=== PATIENT | male | born 1990 | race Caucasian/White ===

== ENCOUNTER 2019-02-09 04:50 | Emergency (ER) | payer BC ==
[~2019-02-09] VITALS: Ht 185.4 cm; Wt 95.8 kg
[2019-02-09] MEDS ORDERED: OMEP-110 PO (05:12)
--- NOTE | 2019-02-09 05:13 | NUR ---
FIRST CONTACT WITH PT. HEMORRHOID, PT C/O SIGNIFICANT PAIN, DENIES ANY BLEEDING. REPORTING PAIN THAT INTERFERES WITH SLEEP. PT DENIES N/V/D WELL. PT'S AOX4. RESPS EVEN AND UNLABORED.
[2019-02-09 05:57] LABS: BASOPHILS # (AUTO) 0.04 x10^3/uL (0-0.1); BASOPHILS % (AUTO) 1 % (0-1); EOSINOPHILS # (AUTO) 0.17 x10^3/uL (0-0.4); EOSINOPHILS % (AUTO) 2 % (1-7); LYMPHOCYTES % (AUTO) 22 % (22-44); MD NO; MEAN CORPUSCULAR HEMOGLOBIN 31.1 pg (27.5-34.5); MEAN CORPUSCULAR HGB CONC 34.1 g/dL (33.2-36.2); MEAN CORPUSCULAR VOLUME 91.2 fL (81-97); MEAN PLATELET VOLUME 8.8 fL (7.4-10.4); MONOCYTES # (AUTO) 0.69 x10^3/uL (0.2-0.8); MONOCYTES % (AUTO) 8 % (2-9); NEUTROPHILS # (AUTO) 5.52 x10^3/uL (1.8-6.8); NEUTROPHILS % (AUTO) 67 % (42-75); PLATELET COUNT 263 x10^3/uL (130-400); RED BLOOD COUNT 5.27 x10^6/uL (4.38-5.82); RED CELL DISTRIBUTION WIDTH 13.7 % (9.4-14.8)
[2019-02-09 06:13] LABS: ANION GAP 8 mmol/L (5-15); CALCIUM 9.6 mg/dL (8.5-10.1); CHLORIDE 108 mmol/L (98-107); CREATININE 1.04 mg/dL (0.7-1.3)
--- NOTE | 2019-02-09 06:21 | NUR ---
PT TO CT NOW.
[2019-02-09] MEDS ORDERED: OMNIPAQUE 350 MG/ML, 100ML BOTTLE ONE (06:32)
--- NOTE | 2019-02-09 06:48 | NUR ---
REPORT GIVEN TO NELLY ARGUELLO.
--- NOTE | 2019-02-09 06:55 | NUR ---
ASSUMED CARE OF PT. CT COMPLETED. LYING FLAT IN A POSITION OF COMFORT. PT STATES NO PAIN IN THIS POSITION
[2019-02-09 07:49] VITALS: BP 115/64
[2019-02-09] MEDS ORDERED: LIDOCAINE-MPF 1%, 2ML ONE (08:23)
--- NOTE | 2019-02-09 08:28 | NUR ---
LION LUCAS AT BEDSIDE PREPARING FOR I&D
[2019-02-09] MEDS ORDERED: LIDOCAINE-MPF 1%, 5ML INFIL ONE (08:30)
--- NOTE | 2019-02-09 09:12 | NUR ---
AMBULATED TO DESK STEADY GAIT
== END 2019-02-09 09:15 | disposition home or self-care (01) ==
LOC: ED 06:15
DX: K61.1 Rectal abscess (principal)
CPT/HCPCS: 36415; 46050; 72193; 80048; 82040; 85025; 99284; Q9967

== ENCOUNTER 2019-05-21 13:27 | Emergency (ER) | payer BC ==
[~2019-05-21] VITALS: Ht 188 cm; Wt 96.9 kg
[2019-05-21 15:01] VITALS: BP 144/94
== END 2019-05-21 15:58 | disposition home or self-care (01) ==
LOC: ED 15:47
DX: K29.00 Acute gastritis without bleeding (principal)
CPT/HCPCS: 36415; 80053; 83690; 85025; 96372; 96374; 96375; 99283; C9113; J2405; J2550; J3490; J7030